=== PATIENT | female | born 1980 | race African-American/Black ===

== ENCOUNTER 2018-12-29 11:28 | Outpatient (RCR) | payer OTHER | END 2019-01-02 | disposition home or self-care (01) | PROVIDERS: ATTEND Nurse Practitioner Family | DX: M54.41 Lumbago with sciatica, right side (principal) ==

== ENCOUNTER 2019-02-01 08:58 | Outpatient (RCR) | payer OTHER ==
[2019-02-09] MEDS ORDERED: DICL50TA4 PO (16:23)
== END 2019-03-22 08:57 | disposition home or self-care (01) ==
PROVIDERS: ATTEND Nurse Practitioner Family
DX: M54.41 Lumbago with sciatica, right side (principal)

== ENCOUNTER 2019-02-09 11:24 | Emergency (ER) | payer OTHER ==
[~2019-02-09] VITALS: Ht 162.6 cm; Wt 79.0 kg
[2019-02-09] MEDS ORDERED: NS IV 1000 ML 1,000 ML ONE (11:33)
[2019-02-09] MEDS ORDERED: ADENOSINE 6 MG/2 ML (ADENOCARD) VIAL IV ONE (11:33)
[2019-02-09 11:41] LABS: BASOPHILS % (AUTO) 0 % (0-10); EOSINOPHILS # (AUTO) 0.1 10^3/uL (0.0-0.3); EOSINOPHILS % (AUTO) 1 % (0-10); HEMATOCRIT 42 % (35-52); HEMOGLOBIN 13.8 G/DL (11.5-16.0); LYMPHOCYTES # (AUTO) 3.3 X 10^3 (1.0-4.0); LYMPHOCYTES % (AUTO) 45 % (12-44); MEAN CORPUSCULAR HEMOGLOBIN 28 PG (25-34); MEAN CORPUSCULAR HGB CONC 33 G/DL (32-36); MEAN CORPUSCULAR VOLUME 87 FL (80-99); MEAN PLATELET VOLUME 10.2 FL (7.4-10.4); MONOCYTES # (AUTO) 0.6 X 10^3 (0.0-1.0); MONOCYTES % (AUTO) 8 % (0-12); NEUTROPHILS # (AUTO) 3.4 X 10^3 (1.8-7.8); NEUTROPHILS % (AUTO) 46 % (42-75); PLATELET COUNT 373 10^3/uL (130-400); RED CELL DISTRIBUTION WIDTH 12.6 % (10.0-14.5); WHITE BLOOD COUNT 7.3 10^3/uL (4.3-11.0)
--- NOTE | 2019-02-09 11:42 | ED Cardiac General ---
History of Present Illness General Stated Complaint: CHEST PAIN Source: patient Exam Limitations: no limitations History of Present Illness Date Seen by Provider: Feb 09, 2019 Time Seen by Provider: 11:25 Initial Comments Patient presents to ER from the [facility] with chief complaint of substernal chest pain and not and fast heart rate. EKG available. She says this started about 4:00 this morning. She feels without energy tired. She's had this happen 3 or 4 more times in the past week since she started using Naprosyn for chronic low back pain since June. No history of tachyarrhythmias heart disease. Mom has history of diabetes and high blood pressure. She takes phentermine although her last dose was 2 days ago. She's been on phentermine for about 10 days. Other than thenaproxen this morning she has not taken any other medications to help with her chest pain. She is not on control. Allergies and Home Medications Allergies Coded Allergies: No Known Drug Allergies (Unverified , 09/20/10) Patient Home Medication List Home Medication List Reviewed: Yes Review of Systems Review of Systems Constitutional: No chills, No diaphoresis EENTM: No Blurred Vision, No Double Vision Respiratory: Denies Cough, Denies Orthopnea Cardiovascular: See HPI, Chest Pain; Denies Edema, Denies Irregular Heart Rate; Palpitations; Denies Syncope; Other (tachy) Gastrointestinal: Denies Constipated, Denies Diarrhea, Denies Nausea Genitourinary: Denies Burning, Denies Discharge Musculoskeletal: No back pain, No joint pain Skin: No pruritus, No rash Past Wwewlgx-Cjkmct-Disrzp Hx Patient Social History Alcohol Use: Denies Use Recreational Drug Use: No Smoking Status: Never a Smoker Physical Exam Vital Signs Vital Signs - First Documented 02/09/19 11:25 Temp 37.9 Pulse 122 Resp 24 B/P (MAP) 158/104 (122) Pulse Ox 99 Capillary Refill : Height, Weight, BMI Height: '" Weight: lbs. oz. kg; BMI Method: General Appearance: Anxious, Moderate Distress HEENT: PERRL/EOMI, Pharynx Normal, Moist Mucous Membranes Neck: Full Range of Motion, Normal Inspection Respiratory: No Chest Non Tender; Lungs Clear, Normal Breath Sounds, No Accessory Muscle Use, No Respiratory Distress, Other (midsternal chest wall tender to direct palpation.) Cardiovascular: Regular Rate, Rhythm, No Edema, Normal Peripheral Pulses Gastrointestinal: Normal Bowel Sounds, Non Tender, Soft Extremity: Normal Capillary Refill, Normal Inspection, No Pedal Edema Neurologic/Psychiatric: Alert, Oriented x3 Skin: Normal Color, Warm/Dry Progress/Results/Core Measures Results/Orders Lab Results Laboratory Tests Test 02/09/19 11:28 02/09/19 15:35 Range/Units White Blood Count 7.3 4.3-11.0 10^3/uL Red Blood Count 4.86 4.35-5.85 10^6/uL Hemoglobin 13.8 11.5-16.0 G/DL Hematocrit 42 35-52 % Mean Corpuscular Volume 87 80-99 FL Mean Corpuscular Hemoglobin 28 25-34 PG Mean Corpuscular Hemoglobin Concent 33 32-36 G/DL Red Cell Distribution Width 12.6 10.0-14.5 % Platelet Count 373 130-400 10^3/uL Mean Platelet Volume 10.2 7.4-10.4 FL Neutrophils (%) (Auto) 46 42-75 % Lymphocytes (%) (Auto) 45 H 12-44 % Monocytes (%) (Auto) 8 0-12 % Eosinophils (%) (Auto) 1 0-10 % Basophils (%) (Auto) 0 0-10 % Neutrophils # (Auto) 3.4 1.8-7.8 X 10^3 Lymphocytes # (Auto) 3.3 1.0-4.0 X 10^3 Monocytes # (Auto) 0.6 0.0-1.0 X 10^3 Eosinophils # (Auto) 0.1 0.0-0.3 10^3/uL Basophils # (Auto) 0.0 0.0-0.1 10^3/uL Prothrombin Time 13.2 12.2-14.7 SEC INR Comment 1.0 0.8-1.4 Activated Partial Thromboplast Time 28 24-35 SEC D-Dimer 0.52 H 0.00-0.49 UG/ML Sodium Level 138 135-145 MMOL/L Potassium Level 3.4 L 3.6-5.0 MMOL/L Chloride Level 104 98-107 MMOL/L Carbon Dioxide Level 23 21-32 MMOL/L Anion Gap 11 5-14 MMOL/L Blood Urea Nitrogen 12 7-18 MG/DL Creatinine 0.99 0.60-1.30 MG/DL Estimat Glomerular Filtration Rate > 60 BUN/Creatinine Ratio 12 Glucose Level 119 H 70-105 MG/DL Calcium Level 9.6 8.5-10.1 MG/DL Corrected Calcium 8.5-10.1 MG/DL Magnesium Level 1.9 1.6-2.4 MG/DL Total Bilirubin 1.0 0.1-1.0 MG/DL Aspartate Amino Transf (AST/SGOT) 22 5-34 U/L Alanine Aminotransferase (ALT/SGPT) 20 0-55 U/L Alkaline Phosphatase 88 40-136 U/L Myoglobin 47.3 10.0-92.0 NG/ML Troponin I < 0.028 < 0.028 <0.028 NG/ML B-Type Natriuretic Peptide < 10.0 <100.0 PG/ML Total Protein 8.6 H 6.4-8.2 GM/DL Albumin 4.6 H 3.2-4.5 GM/DL Lipase 22 8-78 U/L My Orders Orders - MARGOT MOLINA Aspirin Chewable Tablet (Baby Aspirin Ch (02/09/19 11:45) Lorazepam Injection (Ativan Injection) (02/09/19 11:45) Ct Angio Chest W (02/09/19 12:11) Nitroglycerin 0.4 Mg Btl 25's (Nitrostat (02/09/19 12:15) Nitroglycerin 0.4 Mg Btl 25's (Nitrostat (02/09/19 12:13) Morphine Injection (Morphine Injection (02/09/19 12:23) Morphine Injection (Morphine Injection (02/09/19 12:25) Iohexol Injection (Omnipaque 350 Mg/Ml 1 (02/09/19 12:45) Received Contrast (Hold Metformin- Contr (02/09/19 12:45) Ns (Ivpb) (Sodium Chloride 0.9% Ivpb Bag (02/09/19 12:45) Sodium Chloride Flush (Catheter Flush Sy (02/09/19 12:45) Morphine Injection (Morphine Injection (02/09/19 14:43) Troponin I (02/09/19 15:17) Ketorolac Injection (Toradol Injection) (02/09/19 15:30) Medications Given in ED Current Medications Medications Dose Ordered Sig/Sanju Route Start Time Stop Time Status Last Admin Dose Admin Aspirin 324 mg ONCE ONCE PO 02/09/19 11:45 02/09/19 11:48 DC 02/09/19 11:54 324 MG Iohexol 100 ml ONCE ONCE IV 02/09/19 12:45 02/09/19 12:46 DC 02/09/19 14:57 70 ML Ketorolac Tromethamine 30 mg ONCE ONCE IVP 02/09/19 15:30 02/09/19 15:31 DC 02/09/19 15:35 30 MG Lorazepam 0.5 mg ONCE ONCE IVP 02/09/19 11:45 02/09/19 11:48 DC 02/09/19 11:45 0.5 MG Nitroglycerin 0.4 mg NEEDED PRN SL 02/09/19 12:15 02/09/19 12:15 0.4 MG Sodium Chloride 10 ml NEEDED PRN IV 02/09/19 12:45 02/09/19 14:57 10 ML Sodium Chloride 100 ml ONCE ONCE IV 02/09/19 12:45 02/09/19 12:46 DC 02/09/19 14:57 80 ML Sodium Chloride 1,000 ml @ STK-MED ONCE .ROUTE 02/09/19 11:33 02/09/19 11:34 DC 02/09/19 11:33 0 MLS/HR Vital Signs/I&O 02/09/19 11:25 Temp 37.9 Pulse 122 Resp 24 B/P (MAP) 158/104 (122) Pulse Ox 99 Progress Progress Note #1: Time: 11:42 Progress Note Patient is having quite a bit of anxiety and suspected this could be driving part of her symptoms. We will give her some IV fluids and offer some Ativan. She Vistaril she viscerally declined adenosine. Aspirin. Progress Note #2: Time: 16:15 Progress Note Delta troponin is negative. We gave her a second dose of morphine which helped her pain again. Her some Toradol picking about costochondritis versus pericarditis. Because of this was negative however costochondritis is more likely. She is tender to direct palpation which reproduces the pain symptoms. She was on naproxen so we may try diclofenac outpatient and have her follow-up with primary care. She did not get any relief from nitroglycerin. Initial ECG Impression Date: Feb 09, 2019 Initial ECG Impression Time: 11:29 Initial ECG Rate: 124 Initial ECG Rhythm: S.Tach Initial ECG Intervals: Normal Initial ECG Comparisson: No Previous ECG Available Comment Narrow complex sinus tachycardia without ST changes. Diagnostic Imaging Diagonstic Imaging: CT (angiogram) Plain Films/CT/US/NM/MRI: chest Comments NAME: LEATHA EUGENE [facility] REC#: [id number] PT STATUS: REG ER : 1980 PHYSICIAN: MARGOT MOLINA MD ADMIT DATE: 02/09/19/ER Draft Date of Exam:02/09/19 CT ANGIO CHEST W PROCEDURE: CT angiography of the chest with contrast. TECHNIQUE: Multiple contiguous axial images were obtained through the chest after uneventful bolus administration of intravenous contrast. 3D reconstructed CTA MIP acquisitions were also performed. Auto Exposure Controls were utilized during the CT exam to meet ALARA standards for radiation dose reduction. INDICATION: Tachycardia and chest pain. COMPARISON: No prior studies are available for comparison. FINDINGS: Evaluation of the pulmonary arterial system is without thromboembolism. No definite filling defects are seen within central, lobar or segmental branches. The thoracic aorta is normal in caliber. No dissection is identified. No pericardial or pleural fluid is identified. No pulmonary infiltrates, nodules or masses are seen. Upper abdomen does show several low densities in the liver suggestive of cysts. IMPRESSION: No evidence of pulmonary embolism or thoracic aortic dissection. Dictated on workstation # [id number] Dict: 02/09/19 1511 Trans: 02/09/19 1514 [facility] [id number] Interpreted by: EDILBERTO FLORES MD Electronically signed by: Reviewed: Reviewed by Me Departure Impression Primary Impression: Costochondritis, acute Disposition: 01 HOME, SELF-CARE Condition: Improved Departure-Patient Inst. Decision time for Depature: 16:16 Referrals: SOFIA QUEEN MD (PCP) Primary Care Physician Patient Instructions: Costochondritis (DC) Add. Discharge Instructions: I suspect that you are having inflammation of the joints of your chest. This is called costochondritis. Please review the handout for more information. Plan to follow up next week with your primary care doctor. Use Tylenol 1000 mg every 8 hours as needed for pain. Use topical creams as necessary. Start taking the diclofenac 50 mg twice a day for the next 2 weeks. If you begin to have worsening symptoms after taking the diclofenac stopped taking it and follow up with primary care. If you begin to have unrelenting, severe chest pain, shortness of breath, intractable nausea vomiting or fevers then you should return to the ER. Scripts Diclofenac Potassium (Diclofenac Potassium) 50 Mg Tablet 50 MG PO BID for 7 Days, #14 TAB 0 Refills Prov: MARGOT MOLINA 02/09/19 Work/School Note: Work Release Form Date Seen in the Emergency Department: Feb 09, 2019 Return to Work: Feb 10, 2019 Restrictions: Need Release from Doctor Other Restrictions Listed Below: Do not lift, push or pull more than 40 pounds until 02/17/19. Copy Copies To 1: SOFIA QUEEN MD, TITUS J Feb 09, 2019 11:42
[2019-02-09] MEDS ORDERED: LORazepam INJ 2 MG/ML (ATIVAN) VIAL IVP ONE (11:45)
[2019-02-09] MEDS ORDERED: ASPIRIN 81 MG CHEW (CHILDREN'S ASA) PO ONE (11:45)
[2019-02-09 11:49] LABS: PROTHROMBIN TIME PATIENT 13.2 SEC (12.2-14.7)
[2019-02-09 11:59] LABS: ALANINE AMINOTRANSFERASE 20 U/L (0-55); ALBUMIN 4.6 GM/DL (3.2-4.5); ALKALINE PHOSPHATASE 88 U/L (40-136); BUN/CREATININE RATIO 12; CALCIUM 9.6 MG/DL (8.5-10.1); CARBON DIOXIDE 23 MMOL/L (21-32); CHLORIDE 104 MMOL/L (98-107); CREATININE SERUM 0.99 MG/DL (0.60-1.30); GFR ESTIMATED > 60; GLUCOSE 119 MG/DL (70-105); LIPASE 22 U/L (8-78); MAGNESIUM 1.9 MG/DL (1.6-2.4); POTASSIUM 3.4 MMOL/L (3.6-5.0); SODIUM 138 MMOL/L (135-145); TOTAL PROTEIN 8.6 GM/DL (6.4-8.2)
[2019-02-09] MEDS ORDERED: NITROGLYCERIN 0.4 MG SL TABS BTL 25'S SL ONE (12:13)
[2019-02-09] MEDS ORDERED: NITROGLYCERIN 0.4 MG SL TABS BTL 25'S SL PRN (12:15)
--- NOTE | 2019-02-09 12:21 | Diagnostic Imaging Report ---
INDICATION: Chest pain. TIME OF EXAM: 12:09 p.m. COMPARISON: No prior studies are available for comparison. FINDINGS: The heart size is normal. The pulmonary vascularity is unremarkable. The lungs are clear. No infiltrate, effusion, or pneumothorax is detected. IMPRESSION: No acute cardiopulmonary process is detected. Dictated by: Dictated on workstation # [id number]
[2019-02-09] MEDS ORDERED: morphine INJ 10 MG/ML 1ML (SYR OR VIAL) IVP STA ×2 (12:23→14:43)
[2019-02-09] MEDS ORDERED: morphine INJ 10 MG/ML 1ML (SYR OR VIAL) ONE (12:25)
[2019-02-09] MEDS ORDERED: NS 100 ML (IVPB) BAG IV ONE (12:45)
[2019-02-09] MEDS ORDERED: CATHETER FLUSH 10 ML SYR IV PRN (12:45)
[2019-02-09] MEDS ORDERED: HOLD METFORMIN - RECEIVED CONTRAST 20 ML VIAL IV SCH (12:45)
[2019-02-09] MEDS ORDERED: IOHEXOL 350 MG/ML 100 ML (OMNIPAQUE 350) VIAL IV ONE (12:45)
--- NOTE | 2019-02-09 15:14 | Diagnostic Imaging Report ---
PROCEDURE: CT angiography of the chest with contrast. TECHNIQUE: Multiple contiguous axial images were obtained through the chest after uneventful bolus administration of intravenous contrast. 3D reconstructed CTA MIP acquisitions were also performed. Auto Exposure Controls were utilized during the CT exam to meet ALARA standards for radiation dose reduction. INDICATION: Tachycardia and chest pain. COMPARISON: No prior studies are available for comparison. FINDINGS: Evaluation of the pulmonary arterial system is without thromboembolism. No definite filling defects are seen within central, lobar or segmental branches. The thoracic aorta is normal in caliber. No dissection is identified. No pericardial or pleural fluid is identified. No pulmonary infiltrates, nodules or masses are seen. Upper abdomen does show several low densities in the liver suggestive of cysts. IMPRESSION: No evidence of pulmonary embolism or thoracic aortic dissection. Dictated by: Dictated on workstation # [id number]
[2019-02-09] MEDS ORDERED: KETOROLAC 30 MG/ML VIAL IVP ONE (15:30)
[2019-02-09] MEDS ORDERED: DICL50TA4 PO (16:23)
[2019-02-09 16:37] VITALS: BP 158/104
== END 2019-02-09 16:42 | disposition home or self-care (01) ==
LOC: EDUNIT# 11:24 → ER 11:25
DX: M94.0 Chondrocostal junction syndrome [Tietze] (principal)
CPT/HCPCS: 36415; 71045; 71275; 80053; 83690; 83735; 83874; 83880; 84484; 85025; 85379; 85610; 85730; 93005; 93041; 96374; 96375; 96376

== ENCOUNTER → 2019-02-21 | Outpatient (CLI) | payer OTHER ==
[~2019-02-21] MED LIST: DICL50TA4 PO
--- NOTE | 2019-02-21 16:42 | Diagnostic Imaging Report ---
PROCEDURE: MRI lumbar spine. TECHNIQUE: Multiplanar, multisequence MRI of the lumbar spine was performed without contrast. INDICATION: Low back pain and right leg pain. FINDINGS: Curvature and alignment of the lumbar spine is normal. Vertebral body heights are maintained. Marrow signal intensity is unremarkable. No fracture or geographic marrow lesion is seen. There is some degenerative disc disease at the L4-L5 level with desiccation and mild disc space narrowing. The conus is unremarkable at the T12 level. T12-L1: The central canal is widely patent. The neuroforamina are widely patent. L1-L2: The central canal and neuroforamina are widely patent. L2-L3: There is some ligamentous thickening and facet changes. Central canal and neuroforamina appear widely patent. L3-L4: There is some ligamentous thickening present. Central canal and neuroforamina appear patent. L4-L5: Broad-based disc bulging is noted. This indents the ventral thecal sac. There is moderate narrowing of the central canal. There is also significant narrowing of bilateral lateral recesses. Mild bilateral neuroforaminal narrowing is seen. L5-S1: Minimal broad-based bulging is seen. There is some moderate narrowing of the lateral recesses bilaterally. Central canal is patent. No neuroforaminal narrowing is seen. Paraspinous tissues are unremarkable. IMPRESSION: Lower lumbar spondylosis, described level by level above. There is moderate disc bulging at L4-L5 resulting in moderate central canal and bilateral lateral recess stenosis. Dictated by: Dictated on workstation # [id number]
== END ==
LOC: RAD 14:58
PROVIDERS: ATTEND Orthopaedic Surgery Orthopaedic Surgery of the Spine
DX: M48.07 Spinal stenosis, lumbosacral region (principal); M51.36 Other intervertebral disc degeneration, lumbar region; M51.26 Other intervertebral disc displacement, lumbar region; M47.816 Spondylosis without myelopathy or radiculopathy, lumbar region
CPT/HCPCS: 72148

== ENCOUNTER 2019-07-25 15:01 | Emergency (ER) | payer OTHER ==
[~2019-07-25] VITALS: Ht 162.5 cm; Wt 83.0 kg
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
[2019-07-25 15:33] LABS: HEMOGLOBIN 13.8 G/DL (11.5-16.0); RED CELL DISTRIBUTION WIDTH 12.7 % (10.0-14.5); WHITE BLOOD COUNT 7.4 10^3/uL (4.3-11.0)
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
[2019-07-25 15:54] LABS: ALANINE AMINOTRANSFERASE 21 U/L (0-55); ALBUMIN 4.9 GM/DL (3.2-4.5); ALKALINE PHOSPHATASE 80 U/L (40-136); BILIRUBIN,DIRECT 0.4 MG/DL (0.0-0.3); BILIRUBIN,INDIRECT 0.5 MG/DL; BILIRUBIN,TOTAL 0.9 MG/DL (0.1-1.0); BUN/CREATININE RATIO 15; CALCIUM 9.6 MG/DL (8.5-10.1); CARBON DIOXIDE 24 MMOL/L (21-32); CHLORIDE 103 MMOL/L (98-107); CREATININE SERUM 0.84 MG/DL (0.60-1.30); GFR ESTIMATED > 60; GLUCOSE 105 MG/DL (70-105); POTASSIUM 3.4 MMOL/L (3.6-5.0); SODIUM 138 MMOL/L (135-145); TOTAL PROTEIN 8.7 GM/DL (6.4-8.2)
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
[2019-07-25] MEDS ORDERED: CYCL10TA9 PO (16:03)
[2019-07-25 16:30] VITALS: BP 143/101
--- OUTSIDE RECORDS SUMMARY | 2019-07-25 16:43 | XMS REPORT | Continuity of Care Document ---
Author Organization Unknown Address Unknown Phone Unavailable Allergies Active Description Code Type Severity Reaction Onset Reported/Identified Relationship to Patient Clinical Status Yes No Known Drug Allergies [id number] Drug Allergy Unknown N/A 09/20/2010 Medications There is no data. Problems Date Dx Coded Attending Type Code Diagnosis Diagnosed By JESI FERNANDEZ APRN Ot M54.41 LUMBAGO WITH SCIATICA, RIGHT SIDE 10/12/2018 JESI FERNANDEZ APRN Ot M54.41 LUMBAGO WITH SCIATICA, RIGHT SIDE 01/02/2019 JESI FERNANDEZ APRN Ot M54.41 LUMBAGO WITH SCIATICA, RIGHT SIDE 01/06/2019 JESI FERNANDEZ APRN Ot M54.41 LUMBAGO WITH SCIATICA, RIGHT SIDE 01/12/2019 JESI FERNANDEZ APRN Ot M54.41 LUMBAGO WITH SCIATICA, RIGHT SIDE 02/08/2019 JESI FERNANDEZ APRN Ot M54.41 LUMBAGO WITH SCIATICA, RIGHT SIDE 02/09/2019 MARGOT MOLINA MD J Ot M94. 0 CHONDROCOSTAL JUNCTION SYNDROME [TIETZE] 02/09/2019 MARGOT MOLINA MD J Ot R07. 9 CHEST PAIN, UNSPECIFIED 02/14/2019 MARGOT MOLINA MD J Ot M94. 0 CHONDROCOSTAL JUNCTION SYNDROME [TIETZE] 02/14/2019 MARGOT MOLINA MD J Ot R07. 9 CHEST PAIN, UNSPECIFIED 02/15/2019 JESI FERNANDEZ APRN Ot M54.41 LUMBAGO WITH SCIATICA, RIGHT SIDE 02/24/2019 DONTRELL ESPINAL MD Ot M47.8 16 SPONDYLOSIS W/O MYELOPATHY OR RADICULOPA 02/24/2019 DONTRELL ESPINAL MD Ot M48.0 7 SPINAL STENOSIS, LUMBOSACRAL REGION 02/24/2019 DONTRELL ESPINAL MD Ot M51.2 6 OTHER INTERVERTEBRAL DISC DISPLACEMENT, 02/24/2019 DONTRELL ESPINAL MD Ot M51.3 6 OTHER INTERVERTEBRAL DISC DEGENERATION, 07/11/2019 W F32.1 Brandie r depressive disorder, single episode, moderate Jesi Fernandez 07/11/2019 W F41.1 Gene ralized anxiety disorder Jesi Fernandez 07/11/2019 W I10 Essent ial (primary) hypertension Jesi Fernandez 07/19/2019 W F32.1 Brandie r depressive disorder, single episode, moderate Jesi Fernandez 07/19/2019 W F41.1 Gene ralized anxiety disorder Jesi Fernandez 07/19/2019 W I10 Essent ial (primary) hypertension Jesi Fernandez Procedures There is no data. Results Test Result Range Complete blood count (CBC) with automate d white blood cell (WBC) differential - 02/09/19 11:28 Blood leukocytes automated count (number/volume) 7.3 10*3/uL 4.3-11.0 Blood erythrocytes automated count (number/volume) 4.86 10*6/uL 4.35-5.85 Venous blood hemoglobin measurement (mass/volume) 13.8 g/dL 11.5-16.0 Blood hematocrit (volume fraction) 42 % 35-52 Automated erythrocyte mean corpuscular volume 87 [ foz_us] 80-99 Automated erythrocyte mean corpuscular h emoglobin (mass per erythrocyte) 28 pg 25-34 Automated erythrocyte mean corpuscular h emoglobin concentration measurement (mass/volume) 33 g/dL 32-36 Automated erythrocyte distribution width ratio 12. 6 % 10.0- 14.5 Automated blood platelet count (count/volume) 373 10*3/uL 130-400 Automated blood platelet mean volume measurement 10.2 [foz_us] 7.4-10.4 Automated blood neutrophils/100 leukocytes 46 % 42-75 Automated blood lymphocytes/100 leukocytes 45 % 12-44 Blood monocytes/100 leukocytes 8 % 0-12 Automated blood eosinophils/100 leukocytes 1 % 0-10 Automated blood basophils/100 leukocytes 0 % 0-10 Blood neutrophils automated count (number/volume) 3.4 10*3 1.8-7.8 Blood lymphocytes automated count (number/volume) 3.3 10*3 1.0-4.0 Blood monocytes automated count (number/volume) 0. 6 10*3 0.0-1.0 Automated eosinophil count 0.1 10*3/uL 0 .0-0.3 Automated blood basophil count (count/volume) 0.0 10*3/uL 0.0-0.1 PT panel in platelet poor plasma by coag ulation assay - 02/09/19 11:28 Prothrombin time (PT) in platelet poor plasma by coagu lation assay 13.2 s 12.2-14.7 INR in platelet poor plasma or blood by coagulation as say 1.0 0.8-1.4 Activated partial thromboplastin time (a PTT) in platelet poor plasma bycoagulation assay - 02/09/19 11:28 Activated partial thromboplastin time (a PTT) in platelet poor plasma bycoagulation assay 28 s 24-35 Fibrin D-dimer FEU measurement in platel et poor plasma (mass/volume) - 02/09/19 11:28 Fibrin D-dimer FEU measurement in platelet poor plasma (mass/volume) 0.52 ug/mL 0.00-0.49 Comprehensive metabolic panel - 02/09/19 11:28 Serum or plasma sodium measurement (moles/volume) 138 mmol/L 135-145 Serum or plasma potassium measurement (moles/volume) 3.4 mmol/L 3.6-5.0 Serum or plasma chloride measurement (moles/volume) 104 mmol/L 98-107 Carbon dioxide 23 mmol/L 21-32 Serum or plasma anion gap determination (moles/volume) 11 mmol/L 5-14 Serum or plasma urea nitrogen measurement (mass/volume ) 12 mg/dL 7-18 Serum or plasma creatinine measurement (mass/volume) 0.99 mg/dL 0.60-1.30 Serum or plasma urea nitrogen/creatinine mass ratio 12 NRG Serum or plasma creatinine measurement w ith calculation of estimated glomerular filtration rate > NRG Serum or plasma glucose measurement (mass/volume) 119 mg/dL 70-105 Serum or plasma calcium measurement (mass/volume) 9.6 mg/dL 8.5-10.1 Serum or plasma total bilirubin measurement (mass/volu me) 1.0 mg/dL 0.1-1.0 Serum or plasma alkaline phosphatase isael surement (enzymatic activity/volume) 88 U/L 40-136 Serum or plasma aspartate aminotransfera se measurement (enzymatic activity/volume) 22 U/L 5-34 Serum or plasma alanine aminotransferase measurement (enzymatic activity/volume) 20 U/L 0-55 Serum or plasma protein measurement (mass/volume) 8.6 g/dL 6.4-8.2 Serum or plasma albumin measurement (mass/volume) 4.6 g/dL 3.2-4.5 Magnesium - 02/09/19 11:28 Magnesium 1.9 mg/dL 1.6-2.4 Serum or plasma troponin i.cardiac measu rement (mass/volume) - 02/09/19 11:28 Serum or plasma troponin i.cardiac measurement (mass/v olume) < ng/mL <0.028 Myoglobin, serum - 02/09/19 11:28 Myoglobin, serum 47.3 ng/mL 10.0-92.0 Lipase - 02/09/19 11:28 Lipase 22 U/L 8-78 Serum or plasma lithium measurement (mol es/volume) - 02/09/19 11:28 BNP PT < 10.0 <100.0 Serum or plasma troponin i.cardiac measu rement (mass/volume) - 02/09/19 15:35 Serum or plasma troponin i.cardiac measurement (mass/v olume) < ng/mL <0.028 Automated blood complete blood count (he mogram) panel - 07/25/19 15:25 Blood leukocytes automated count (number/volume) 7.4 10*3/uL 4.3-11.0 Blood erythrocytes automated count (number/volume) 4.83 10*6/uL 4.35-5.85 Venous blood hemoglobin measurement (mass/volume) 13.8 g/dL 11.5-16.0 Blood hematocrit (volume fraction) 42 % 35-52 Automated erythrocyte mean corpuscular volume 88 [ foz_us] 80-99 Automated erythrocyte mean corpuscular h emoglobin (mass per erythrocyte) 29 pg 25-34 Automated erythrocyte mean corpuscular h emoglobin concentration measurement (mass/volume) 33 g/dL 32-36 Automated erythrocyte distribution width ratio 12. 7 % 10.0- 14.5 Automated blood platelet count (count/volume) 347 10*3/uL 130-400 Automated blood platelet mean volume measurement 10.0 [foz_us] 7.4-10.4 Liver function panel (serum or plasma al k phos, alb, total and direct bili, total protein, ALT, AST) - 07/25/19 15:25 Serum or plasma total bilirubin measurement (mass/volu me) 0.9 mg/dL 0.1-1.0 Serum or plasma alkaline phosphatase isael surement (enzymatic activity/volume) 80 U/L 40-136 Serum or plasma aspartate aminotransfera se measurement (enzymatic activity/volume) 22 U/L 5-34 Serum or plasma alanine aminotransferase measurement (enzymatic activity/volume) 21 U/L 0-55 Serum or plasma protein measurement (mass/volume) 8.7 g/dL 6.4-8.2 Serum or plasma albumin measurement (mass/volume) 4.9 g/dL 3.2-4.5 Bilirubin direct 0.4 mg/dL 0.0-0.3 Serum or plasma indirect bilirubin measurement (mass/v olume) 0.5 mg/dL NRG Whole blood basic metabolic panel - 07/02 08/20 15:25 Serum or plasma sodium measurement (moles/volume) 138 mmol/L 135-145 Serum or plasma potassium measurement (moles/volume) 3.4 mmol/L 3.6-5.0 Serum or plasma chloride measurement (moles/volume) 103 mmol/L 98-107 Carbon dioxide 24 mmol/L 21-32 Serum or plasma anion gap determination (moles/volume) 11 mmol/L 5-14 Serum or plasma urea nitrogen measurement (mass/volume ) 13 mg/dL 7-18 Serum or plasma creatinine measurement (mass/volume) 0.84 mg/dL 0.60-1.30 Serum or plasma urea nitrogen/creatinine mass ratio 15 NRG Serum or plasma creatinine measurement w ith calculation of estimated glomerular filtration rate > NRG Serum or plasma glucose measurement (mass/volume) 105 mg/dL 70-105 Serum or plasma calcium measurement (mass/volume) 9.6 mg/dL 8.5-10.1 Serum or plasma choriogonadotropin (preg aruna test) detection - 07/25/19 15:25 Serum or plasma choriogonadotropin ( test) de tection NEGATIVE NEGATIVE Serum or plasma ethanol measurement (mas s/volume) - 07/25/19 15:25 Serum or plasma ethanol measurement (mass/volume) < mg/dL <10 Encounters ACCT No. Visit Date/Time Discharge Status Pt. Type Provider Facility Loc./Unit Complaint [id number] 03/23/2017 09:01:24 03/23/2017 23:59:5 9 CLS Outpatient [id number] 02/01/2019 08:58:00 08:57:00 DIS Outpatient JESI FERNANDEZ APRN [facility] LBP WITH SCIATICA; R L EG PAIN [id number] 02/21/2019 14:58:00 23:59:59 CLS Outpatient DONTRELL ESPINAL MD [facility] RAD LUMBAGO [id number] 02/09/2019 11:25:00 16:42:00 DIS Emergency MARGOT MOLINA MD [facility] ER CHEST PAIN [id number] 12/29/2018 11:28:00 00:01:00 DIS Outpatient JESI FERNANDEZ APRN [facility] LBP WITH SCIATICA; R L EG PAIN [id number] 07/25/2019 15:39:00 Document Registration
== END 2019-07-25 16:30 | disposition home or self-care (01) ==
LOC: EDUNIT# 15:01 → ER 15:03
DX: S13.4XXA Sprain of ligaments of cervical spine, initial encounter (principal); S99.911A Unspecified injury of right ankle, initial encounter; V48.5XXA Car driver injured in noncollision transport accident in traffic accident, initial encounter
CPT/HCPCS: 36415; 70450; 71045; 72125; 73610; 80048; 80076; 80320; 84703; 85027

== ENCOUNTER → 2022-05-27 | Outpatient (CLI) | payer OTHER ==
[~2022-05-27] MED LIST changes: +CYCL10TA25 PO
--- NOTE | 2022-05-27 12:46 | Diagnostic Imaging Report ---
INDICATION: Routine screening. No prior mammograms are available for comparison. This is a baseline study. 2-D and 3-D bilateral screening mammography was performed with CAD. Both breasts are heterogeneously dense, limiting the sensitivity of mammography. No mass or malignant-appearing microcalcifications are seen. Axillae are unremarkable. IMPRESSION: No mammographic features suspicious for malignancy are identified. ACR BI-RADS Category 1: Negative. Result letter will be mailed to the patient. Note: At least 10% of breast cancer is not imaged by mammography. BI-RADS Category 1 Dictated by: Dictated on workstation # [id number]
== END ==
LOC: RAD 09:32
PROVIDERS: ATTEND Nurse Practitioner Family
DX: Z12.31 Encounter for screening mammogram for malignant neoplasm of breast (principal)
CPT/HCPCS: 77063; 77067